=== PATIENT | male | born 1950 | race Native Hawaiian/Other Pacific Islander ===

== ENCOUNTER 2018-02-14 08:31 | Day surgery (SDC) | payer MEDICARE ==
[~2018-02-14 08:31] MED LIST: DILAUDID IV PRN; LACTATED RINGERS 1,000 ML IV SCH; VERSED IV NR; ZOFRAN IV PRN
[2018-02-14] MEDS ORDERED: ANCEF/STERILE WATER 2 GM/20 ML IV NR (10:16)
--- NOTE | 2018-02-14 10:20 | Anesthesia Day of Surgery ---
Anesthesia Day of Surgery - Day of Surgery Patient Examined: Yes Patient H&P Reviewed: Yes Patient is NPO: Yes
--- NOTE | 2018-02-14 10:20 | Anesthesia Consultation ---
Anesthesia Consult and Med Hx Date of service: 02/14/18 - Airway Anesthetic Teeth Evaluation: Chipped ROM Head & Neck: Adequate Mental/Hyoid Distance: Adequate Mallampati Class: Class III Intubation Access Assessment: Possibly Difficult - Pulmonary Exam CTA: Yes - Cardiac Exam Cardiac Exam: RRR - Pre-Operative Health Status ASA Pre-Surgery Classification: ASA3 Proposed Anesthetic Plan: General - Pulmonary Hx Smoking: Yes (1 cig/day; quit 25 yrs ago) Hx Asthma: No Hx Respiratory Symptoms: No SOB: No Hx Sleep Apnea: No (STUART PRE SCREEN HIGH RISK.) - Cardiovascular System Hx Hypertension: Yes Hx Heart Attack/AMI: No - Central Nervous System Hx Seizures: No CVA: No - Gastrointestinal Hx Gastroesophageal Reflux Disease: Yes (well controlled) - Endocrine Hx Renal Disease: No (renal stones) Hx Liver Disease: No Hx Non-Insulin Dependent Diabetes: Yes Hx Thyroid Disease: No - Other Systems Hx Obesity: Yes - Additional Comments Anesthesia Medical History Comments: No hx anesthetic complications.
[2018-02-14] MEDS ORDERED: DIPRIVAN 10 MG/ML IV ONE (10:24)
[2018-02-14] MEDS ORDERED: XYLOCAINE MPF 2% ONE (10:24)
[2018-02-14] MEDS ORDERED: DILAUDID ONE (10:25)
[2018-02-14] MEDS ORDERED: DECADRON ONE (10:51)
[2018-02-14] MEDS ORDERED: ZOFRAN ONE (10:51)
--- NOTE | 2018-02-14 11:21 | Short Stay Summary ---
Short Stay Documentation Date of service: 02/14/18 - History H&P: obtained from office - Allergies and Medications Current Medications: Allergies No Known Allergies Allergy (Verified 02/13/18 15:02) Home Medications Medication Instructions Recorded Confirmed Last Taken Type Diclofenac Sodium 50 mg PO BID 02/13/18 02/13/18 Unknown History Fluticasone [Flonase] 1 spray NS QDAY 02/13/18 02/13/18 Unknown History Lisinopril [Zestril] 30 mg PO DAILY 02/13/18 02/13/18 Unknown History Loratadine [Claritin] 10 mg PO DAILY 02/13/18 02/13/18 Unknown History Omeprazole 40 mg PO DAILY 02/13/18 02/13/18 Unknown History glipiZIDE [Glipizide] 5 mg PO BID 02/13/18 02/13/18 Unknown History metFORMIN [Glucophage] 500 mg PO BID 02/13/18 02/13/18 Unknown History Active Medications Cefazolin Sodium (Ancef/Sterile Water 2 Gm/20 Ml) 2 gm IV PREOP NR Stop: 02/14/18 15:00 Hydromorphone HCl (Dilaudid) 0.5 mg IV Q10MIN PRN PRN Reason: Pain , Severe (7-10) Stop: 02/14/18 22:00 Lactated Ringer's (Lactated Ringers) 1,000 mls @ 100 mls/hr IV DIRECT MARK Midazolam HCl (Versed) 2 mg IV PREOP NR Stop: 02/14/18 23:59 Ondansetron HCl (Zofran) 4 mg IV ONCE PRN PRN Reason: Nausea And Vomiting Stop: 02/14/18 15:00 - Brief post op/procedure progress note Date of procedure: 02/14/18 Pre-op diagnosis: left ureteral stone 6mm Post-op diagnosis: same Procedure: eswl Anesthesia: GETA Surgeon: COREY VILLANUEVA Estimated blood loss: none Condition: stable - Hospital course Hospital course: percocet & post op info on chart - Disposition Condition at discharge: Stable Disposition: DC-01 TO HOME OR SELFCARE Short Stay Discharge Plan Follow up with: PRIMARY CARE,MD [Primary Care Provider] - 7 Days
[2018-02-14 13:28] VITALS: BP 129/81
--- NOTE | 2018-02-14 13:50 | Operative Report ---
PREOPERATIVE DIAGNOSIS: Left ureteral stone, 6 mm. POSTOPERATIVE DIAGNOSIS: Left ureteral stone, 6 mm. PROCEDURE: Extracorporal shock wave lithotripsy. SURGEON: Miguel Gambino MD ANESTHESIA: General. ESTIMATED BLOOD LOSS: Minimal. FLUIDS: Crystalloid. COMPLICATIONS: No complications. INDICATIONS: This patient is a 68-year-old gentleman seen by Dr. Sweeney in the office with flank pain. KUB revealed a 6 mm stone. He presents now for surgical intervention. His daughter is also present. DESCRIPTION OF PROCEDURE: The patient was taken to the operative suite, placed in a supine position. After adequate general anesthesia, the stone was localized in 2 planes using fluoroscopy. Extracorporal shock wave lithotripsy was administered in maximum kV of 10 titrating with a slow titration, a total of 3000 shocks. There was some fragmentation of his stone. He tolerated the procedure well and was extubated and taken to recovery room. He will go home on Percocet, strain his urine. JOB# [id number] [facility]
== END 2018-02-14 13:20 | disposition home or self-care (01) ==
LOC: OR 08:31
PROVIDERS: ATTEND Urology
DX: N20.1 Calculus of ureter (principal); I10 Essential (primary) hypertension; K21.9 Gastro-esophageal reflux disease without esophagitis; M19.90 Unspecified osteoarthritis, unspecified site; E11.9 Type 2 diabetes mellitus without complications; E66.9 Obesity, unspecified; Z68.33 Body mass index [BMI] 33.0-33.9, adult; Z87.442 Personal history of urinary calculi; Z87.891 Personal history of nicotine dependence; Z79.899 Other long term (current) drug therapy; Z79.84 Long term (current) use of oral hypoglycemic drugs
CPT/HCPCS: 50590; 82962; J0690; J1100; J1170; J2250; J2405; J2704; J7120